=== PATIENT | male | born 1960 | race Caucasian/White ===

== ENCOUNTER → 2021-09-03 | Outpatient (CLI) | payer OTHER ==
--- NOTE | 2021-09-03 12:10 | Diagnostic Imaging Report ---
Left hip at 11:30. Indication: Left hip pain AP and lateral views were obtained. There are no prior studies available for comparison. There is no fracture, dislocation or acute bony abnormality evident. There is only mild degenerative disease of the hip joint. The soft tissues are unremarkable for an acute injury. There are radiopaque seed implants in the region of the prostate gland. Orthopedic hardware is also seen overlying the lower lumbar spine. Impression: 1. There is no evidence for an acute bony abnormality. 2. If clinical concern regarding an underlying abnormality persists, then MRI would be recommended for further study. Dictated by: Dictated on workstation # [id number]
--- NOTE | 2021-09-03 12:13 | Diagnostic Imaging Report ---
EXAMINATION: Lumbar spine at 11:31 a.m. INDICATION: Low back pain. TECHNIQUE: Three views were obtained. COMPARISON: There are no prior studies available for comparison. FINDINGS: The lateral view reveals that there has been a prior posterior fusion of L3, L4, and L5. There are bilateral pedicle screws in place as well as interconnecting rods. The AP view shows that there has also been a laminectomy extending from L3 through L5-S1. The orthopedic hardware seems to be in good position. There is narrowing of the disc space at L5-S1 and L1-L2 and to a lesser degree at L2-L3, L3-L4, and L4-L5. There is no fracture or acute bony abnormality identified. There is no sign of a paraspinal mass. There is mild symmetrical sclerosis of the sacroiliac joints. IMPRESSION: 1. There is no evidence for an acute bony abnormality. 2. There are postsurgical changes consistent with a fusion of L3, L4, and L5. The orthopedic hardware seems to be in good position. Dictated by: Dictated on workstation # [id number]
== END ==
LOC: RAD 10:53
PROVIDERS: ATTEND Family Medicine
DX: Z02.71 Encounter for disability determination (principal); M25.552 Pain in left hip; M54.50 Low back pain, unspecified; Z98.890 Other specified postprocedural states
CPT/HCPCS: 72100; 73502